=== PATIENT | female | born 1945 | race Two or more races ===

== ENCOUNTER 2018-02-15 18:42 | Observation (INO) | payer OTHER ==
[2018-02-15] MEDS ORDERED: GLUCOSE GEL 15 GRAM TUBE PO ×2 (22:30)
[2018-02-15] MEDS ORDERED: GLUCOSE GEL 15 GRAM TUBE BUCCAL (22:30)
[2018-02-15] MEDS ORDERED: DEXTROSE 50% 50 ML SYRINGE IV ×2 (22:30)
[2018-02-15] MEDS ORDERED: GLUCAGON 1 MG INJ IM (22:30)
[2018-02-15] MEDS: INSULIN ASPART [NOVOLOG] 3 ML PEN SC (23:00)
[2018-02-15] MEDS: ZOLPIDEM 5 MG TAB PO (23:21)
[2018-02-15] MEDS: HYDROCHLOROTHIAZIDE 25 MG TAB PO (23:21)
[2018-02-15] MEDS: hydrALAzine 20 MG INJ IV (23:28)
[2018-02-15] MEDS: LOSARTAN 50 MG TAB PO (23:30)
[2018-02-15] MEDS: DILTIAZEM (CD) 120 MG CAP PO (23:46)
[2018-02-16] MEDS: ZOLPIDEM 5 MG TAB PO (01:00)
[2018-02-16] MEDS: ACCU-CHEK XX ×4 (01:01→20:47)
[2018-02-16 05:02] LABS: WHITE BLOOD COUNT 8.9 10^3/ul (4.8-10.8)
[2018-02-16 05:02] LABS: ABNORMAL IP MESSAGE 1; BASOPHILS % 0.4 % (0.0-2.0); EOSINOPHILS # 0.2 10^3/ul (0.0-0.5); EOSINOPHILS % 2.4 % (0.0-7.0); HEMATOCRIT 35.1 % (37.0-47.0); HEMOGLOBIN 10.5 g/dl (12.0-16.0); LYMPHOCYTES # 1.6 10^3/ul (0.8-2.9); LYMPHOCYTES % 17.9 % (15.0-51.0); MEAN CORPUSCULAR HEMOGLOBIN 20.8 pg (29.0-33.0); MEAN CORPUSCULAR HGB CONC 29.9 g/dl (32.0-37.0); MEAN CORPUSCULAR VOLUME 69.4 fl (82.0-101.0); MEAN PLATELET VOLUME 8.8 fl (7.4-10.4); MONOCYTE # 0.6 10^3/ul (0.3-0.9); MONOCYTES % 6.4 % (0.0-11.0); NEUTROPHIL # 6.4 10^3/ul (1.6-7.5); NEUTROPHILS % 72.3 % (39.0-77.0); PLATELET COUNT 393 10^3/UL (140-415); RED BLOOD COUNT 5.06 10^6/ul (4.20-5.40); RED CELL DISTRIBUTION WIDTH 23.9 % (11.5-14.5)
[2018-02-16 05:03] LABS: ADD MAN DIFF? NO
[2018-02-16 05:09] LABS: POSITIVE DIFF @See below
[2018-02-16 05:22] LABS: ANION GAP 13 (8-16); BLOOD UREA NITROGEN 16 mg/dl (7-20); CARBON DIOXIDE 28 mmol/L (21-31); CHLORIDE 101 mmol/L (97-110); CREATININE 0.54 mg/dl (0.44-1.00); GLUCOSE 123 mg/dl (70-220); POTASSIUM 3.8 mmol/L (3.5-5.1); SODIUM 138 mmol/L (135-144)
[2018-02-16 05:25] LABS: INR 3.22; PROTIME 33.9 Sec (11.9-14.9); PT RATIO 2.6
[2018-02-16 05:58] LABS: IMMEDIATE SPIN CROSSMATCH 1 1
[2018-02-16] MEDS: PANTOPRAZOLE (EC) 40 MG TAB PO (06:17)
[2018-02-16] MEDS: ACETAMINOPHEN 325 MG TAB PO (06:17)
[2018-02-16 06:39] LABS: HEMOGLOBIN A1C 6.7 % (0-5.9)
[2018-02-16] MEDS ORDERED: INSULIN ASPART [NOVOLOG] 3 ML PEN SC (08:00)
[2018-02-16] MEDS: INSULIN ASPART [NOVOLOG] 3 ML PEN SC ×4 (08:00→20:47)
[2018-02-16] MEDS: hydrALAzine 20 MG INJ IV (08:38)
[2018-02-16] MEDS ORDERED: DILTIAZEM (CD) 120 MG CAP PO (09:00)
[2018-02-16] MEDS ORDERED: NON-FORMULARY/PATIENT OWN MED (Losartan-Hydrochlorothiazide (Losartan-HCTZ) 1 TAB) PO (09:00)
[2018-02-16] MEDS ORDERED: HYDROCHLOROTHIAZIDE 25 MG TAB PO (09:00)
[2018-02-16] MEDS: DILTIAZEM (CD) 120 MG CAP PO (09:06)
[2018-02-16] MEDS: LOSARTAN 50 MG TAB PO (09:06)
[2018-02-16] MEDS: HYDROCHLOROTHIAZIDE 25 MG TAB PO (09:07)
[2018-02-16 13:44] LABS: INR 2.32; PROTIME 26.1 Sec (11.9-14.9)
[2018-02-16 14:01] LABS: HEMOGLOBIN A1C 6.5 % (0-5.9)
[2018-02-16 14:17] LABS: B-TYPE NATRIURETIC PEPTIDE 954 PG/ML (0-125)
[2018-02-16 14:26] LABS: IRON 73 ug/dl (35-150)
[2018-02-16 14:35] LABS: % IRON SATURATION 18 % SAT (22-52); TOTAL IRON BINDING CAPACITY 405 ug/dl (241-421)
[2018-02-16 14:40] LABS: THYROID STIMULATING HORMONE 0.521 MIU/L (0.465-4.680)
[2018-02-16 14:42] LABS: FREE T4 (FREE THYROXINE) 1.63 ng/dl (0.78-2.44)
[2018-02-16 14:44] LABS: FERRITIN 14.3 ng/ml (11.1-264.0)
[2018-02-16] MEDS: FUROSEMIDE 40 MG INJ IV (15:14)
[2018-02-16 15:17] LABS: FOLATE > 20.0 ng/ml (2.8-20.0)
[2018-02-16] MEDS: WARFARIN 2 MG TAB PO (18:16)
[2018-02-16] MEDS: ATORVASTATIN 20 MG TAB PO (20:46)
[2018-02-17] MEDS: ACCU-CHEK XX ×4 (02:00→20:00)
[2018-02-17] MEDS: PANTOPRAZOLE (EC) 40 MG TAB PO (05:11)
[2018-02-17] MEDS: hydrALAzine 20 MG INJ IV (05:12)
[2018-02-17] MEDS: FUROSEMIDE 40 MG INJ IV ×2 (05:12→18:36)
[2018-02-17 06:37] LABS: ADD MAN DIFF? NO
[2018-02-17 06:41] LABS: WHITE BLOOD COUNT 10.5 10^3/ul (4.8-10.8)
[2018-02-17 06:41] LABS: ABNORMAL IP MESSAGE 1; BASOPHILS % 0.4 % (0.0-2.0); EOSINOPHILS # 0.2 10^3/ul (0.0-0.5); EOSINOPHILS % 2.1 % (0.0-7.0); HEMATOCRIT 41.6 % (37.0-47.0); HEMOGLOBIN 12.5 g/dl (12.0-16.0); LYMPHOCYTES # 2.9 10^3/ul (0.8-2.9); LYMPHOCYTES % 27.8 % (15.0-51.0); MEAN CORPUSCULAR HEMOGLOBIN 21.4 pg (29.0-33.0); MEAN CORPUSCULAR VOLUME 71.2 fl (82.0-101.0); MEAN PLATELET VOLUME 8.8 fl (7.4-10.4); MONOCYTE # 0.8 10^3/ul (0.3-0.9); MONOCYTES % 7.1 % (0.0-11.0); NEUTROPHIL # 6.6 10^3/ul (1.6-7.5); NEUTROPHILS % 62.3 % (39.0-77.0); PLATELET COUNT 434 10^3/UL (140-415); RED BLOOD COUNT 5.84 10^6/ul (4.20-5.40); RED CELL DISTRIBUTION WIDTH 25.7 % (11.5-14.5)
[2018-02-17 06:44] LABS: POSITIVE DIFF @See below
[2018-02-17 07:02] LABS: INR 1.81; PROTIME 21.4 Sec (11.9-14.9); PT RATIO 1.7
[2018-02-17 07:03] LABS: MAGNESIUM 1.7 mg/dl (1.7-2.5)
[2018-02-17 07:03] LABS: PHOSPHORUS 4.3 mg/dl (2.5-4.9)
[2018-02-17 07:23] LABS: ANION GAP 17 (8-16); BLOOD UREA NITROGEN 25 mg/dl (7-20); CALCIUM 9.6 mg/dl (8.4-10.2); CARBON DIOXIDE 28 mmol/L (21-31); CHLORIDE 97 mmol/L (97-110); CREATININE 0.76 mg/dl (0.44-1.00); GLUCOSE 135 mg/dl (70-220); POTASSIUM 3.7 mmol/L (3.5-5.1); SODIUM 138 mmol/L (135-144)
[2018-02-17] MEDS: INSULIN ASPART [NOVOLOG] 3 ML PEN SC ×4 (08:14→21:00)
[2018-02-17] MEDS: DILTIAZEM (CD) 120 MG CAP PO (08:56)
[2018-02-17] MEDS: LOSARTAN 50 MG TAB PO (08:57)
[2018-02-17] MEDS: ASCORBIC ACID 500 MG TAB PO (12:17)
[2018-02-17] MEDS: POTASSIUM CHLORIDE (SR) 20 MEQ TAB PO (12:17)
[2018-02-17] MEDS: FERROUS SULFATE (EC) 325 MG TAB PO (12:17)
[2018-02-17] MEDS: MAGNESIUM SULFATE 2 GM/50 ML 50 ML IVPB (13:52)
[2018-02-17] MEDS: AZITHROMYCIN 250 MG TAB PO (18:35)
[2018-02-17] MEDS: WARFARIN 7.5 MG TAB PO (18:35)
[2018-02-17] MEDS: ATORVASTATIN 20 MG TAB PO (21:23)
[2018-02-17] MEDS: ACETAMINOPHEN 325 MG TAB PO (23:03)
[2018-02-18] MEDS: ZOLPIDEM 5 MG TAB PO (00:33)
[2018-02-18] MEDS: ACCU-CHEK XX ×2 (01:34→10:16)
[2018-02-18 06:13] LABS: ADD MAN DIFF? NO
[2018-02-18 06:21] LABS: ABNORMAL IP MESSAGE 1; BASOPHILS % 0.5 % (0.0-2.0); EOSINOPHILS # 0.3 10^3/ul (0.0-0.5); EOSINOPHILS % 3.4 % (0.0-7.0); HEMATOCRIT 39.5 % (37.0-47.0); HEMOGLOBIN 11.8 g/dl (12.0-16.0); LYMPHOCYTES % 23.4 % (15.0-51.0); MEAN CORPUSCULAR HEMOGLOBIN 21.3 pg (29.0-33.0); MEAN CORPUSCULAR HGB CONC 29.9 g/dl (32.0-37.0); MEAN CORPUSCULAR VOLUME 71.4 fl (82.0-101.0); MEAN PLATELET VOLUME 8.7 fl (7.4-10.4); MONOCYTE # 0.7 10^3/ul (0.3-0.9); MONOCYTES % 7.5 % (0.0-11.0); NEUTROPHIL # 5.6 10^3/ul (1.6-7.5); NEUTROPHILS % 64.9 % (39.0-77.0); PLATELET COUNT 379 10^3/UL (140-415); RED BLOOD COUNT 5.53 10^6/ul (4.20-5.40); RED CELL DISTRIBUTION WIDTH 25.9 % (11.5-14.5)
[2018-02-18 06:21] LABS: WHITE BLOOD COUNT 8.6 10^3/ul (4.8-10.8)
[2018-02-18] MEDS: FUROSEMIDE 40 MG INJ IV (06:38)
[2018-02-18] MEDS: PANTOPRAZOLE (EC) 40 MG TAB PO (06:38)
[2018-02-18 06:43] LABS: ANION GAP 13 (8-16); BLOOD UREA NITROGEN 33 mg/dl (7-20); CALCIUM 8.9 mg/dl (8.4-10.2); CARBON DIOXIDE 31 mmol/L (21-31); CHLORIDE 97 mmol/L (97-110); CREATININE 0.73 mg/dl (0.44-1.00); GLUCOSE 118 mg/dl (70-220); POTASSIUM 3.7 mmol/L (3.5-5.1); SODIUM 137 mmol/L (135-144)
[2018-02-18 06:44] LABS: POSITIVE DIFF @See below
[2018-02-18 06:45] LABS: INR 1.92; PROTIME 22.4 Sec (11.9-14.9); PT RATIO 1.8
[2018-02-18 06:56] LABS: MAGNESIUM 1.9 mg/dl (1.7-2.5)
[2018-02-18 06:56] LABS: PHOSPHORUS 5.3 mg/dl (2.5-4.9)
[2018-02-18] MEDS: INSULIN ASPART [NOVOLOG] 3 ML PEN SC ×2 (07:28→12:00)
[2018-02-18] MEDS: ASCORBIC ACID 500 MG TAB PO (08:33)
[2018-02-18] MEDS: LOSARTAN 50 MG TAB PO (08:33)
[2018-02-18] MEDS: FERROUS SULFATE (EC) 325 MG TAB PO (08:33)
[2018-02-18] MEDS: DILTIAZEM (CD) 120 MG CAP PO (08:33)
[2018-02-18] MEDS: AZITHROMYCIN 250 MG TAB PO (08:42)
[2018-02-18] MEDS: POTASSIUM CHLORIDE (SR) 20 MEQ TAB PO (13:17)
[2018-02-18] MEDS: WARFARIN 3 MG TAB PO (13:18)
== END 2018-02-18 14:40 | disposition home or self-care (01) ==
LOC: 6WM 18:42
PROVIDERS: Internal Medicine
DX: D50.9 Iron deficiency anemia, unspecified (principal); I50.30 Unspecified diastolic (congestive) heart failure; I48.2 Chronic atrial fibrillation; Z79.01 Long term (current) use of anticoagulants; E11.9 Type 2 diabetes mellitus without complications; I10 Essential (primary) hypertension; E78.5 Hyperlipidemia, unspecified; Z79.84 Long term (current) use of oral hypoglycemic drugs
CPT/HCPCS: 36430; 71046; 80048; 82728; 82746; 82962; 83036; 83540; 83735; 83880; 84100; 84439; 84443; 85025; 85610; 86850; 86900; 86901; 86920; 93005; 93306; 99217; G0378